=== PATIENT | female | born 1950 | race American Indian/Alaskan Native ===

== ENCOUNTER 2019-09-20 16:57 | Emergency (ER) | payer MEDICARE ==
[2019-09-20 17:44] LABS: Basophils % (Auto) 0.9 % (0.0-1.8); Eosinophils % (Auto) 0.5 % (0.0-4.3); Hematocrit 39.8 % (30.3-42.9); Hemoglobin 13.6 gm/dl (10.1-14.3); Lymphocytes # (Auto) 1.5 K/mm3 (1.2-5.4); Lymphocytes % (Auto) 33.9 % (13.4-35.0); Mean Corpuscular HGB Conc 34 % (30-34); Mean Corpuscular Volume 92 fl (79-97); Monocytes # (Auto) 0.4 K/mm3 (0.0-0.8); Platelet Count 219 K/mm3 (140-440); Red Blood Count 4.32 M/mm3 (3.65-5.03); Red Cell Distribution Width 14.1 % (13.2-15.2)
[2019-09-20 17:55] LABS: BUN/Creatinine Ratio 27; Blood Urea Nitrogen 19 mg/dL (7-17); Calcium 9.2 mg/dL (8.4-10.2); Hemolysis Index 7
[2019-09-20 17:58] LABS: Bacteria,Urine 1+ /HPF (Negative); Mucus,Urine FEW /HPF
[2019-09-20 17:59] LABS: Bilirubin,Urine NEG (Negative); Blood,Urine MOD (Negative); Color,Urine Yellow (Yellow); Protein,Urine <15 mg/dL mg/dL (Negative)
[2019-09-20 18:04] LABS: Amphetamine Screen,Urine PRESUMPTIVE NEGATIVE; Benzodiazepines Screen,Urine PRESUMPTIVE NEGATIVE; Cannabinoid Screen,Urine PRESUMPTIVE NEGATIVE; Cocaine Screen,Urine PRESUMPTIVE NEGATIVE; Methadone Screen,Urine PRESUMPTIVE NEGATIVE; Opiate Screen,Urine PRESUMPTIVE NEGATIVE
[2019-09-20] MEDS ORDERED: NITROFURANTOIN MONOHYD/M-CRYST 100 MG CAP PO ONE (18:42)
--- NOTE | 2019-09-20 18:59 | Emergency Department Report ---
HPI <YARITZA ROWLEY - Last Filed: 09/21/19 09:13> - HPI HPI: 69-year-old female presents to the emergency department via EMS for what appears to be a mental health evaluation. The patient has a past medical history of Alzheimer's dementia, schizophrenia and hypertension. The patient says that she was told to come in by her daughter but is unable to explain as to why she was sent in. Patient is oriented to person and place but not time. When answering most questions the patient goes on some type of tangential thoughts and does not end up answering the question. I spoke to the patient's daughter, Marisol Cifuentes, who says that the patient has been having some hallucinations or delusions and has been acting in a manner that is dangerous for both the patient herself and her grandchildren. The daughter just gave a few days ago. She says that the patient has been picking up the 4-day-old child and trying to "hand it over to people who are not there." The patient also has been going down and blocking the door and sometimes leaving it open when there are other young children in the house. It does not sound like the patient is compliant with her medications, Aricept, amlodipine and Seroquel. <JEVON PERSAUD S - Last Filed: 09/27/19 07:54> - General Chief Complaint: Medical Clearance Time Seen by Provider: 09/20/19 18:02 ED Past Medical Hx <YARITZA ROWLEY - Last Filed: 09/21/19 09:13> - Past Medical History Previous Medical History?: Yes Hx Hypertension: Yes Hx Psychiatric Treatment: Yes (schizo) Additional medical history: Alzheimers - Social History Smoking Status: Never Smoker Substance Use Type: None <JEVON PERSAUD S - Last Filed: 09/27/19 07:54> - Medications Home Medications: Home Medications Medication Instructions Recorded Confirmed Last Taken Type Amlodipine Besylate [Norvasc] 10 mg PO QDAY 09/20/19 09/21/19 Unknown History Donepezil [Aricept] 5 mg PO QPM 09/20/19 09/21/19 Unknown History Mirtazapine [Remeron 15mg TAB] 15 mg PO QHS 09/20/19 09/21/19 Unknown History Nitrofurantoin [place]/M-Cryst 100 mg PO Q12HR #13 capsule 09/21/19 09/21/19 Unknown Rx [Macrobid CAP] QUEtiapine [SEROquel] 25 mg PO QDAY #30 tablet 09/26/19 Unknown Rx Quetiapine Fumarate [SEROquel] 75 mg PO QHS #60 09/26/19 Unknown Rx ED Review of Systems ROS: Stated complaint: BEHAVIOR DISORDER Other details as noted in HPI <YARITZA ROWLEY - Last Filed: 09/21/19 09:13> ROS: Stated complaint: BEHAVIOR DISORDER Other details as noted in HPI Comment: All other systems reviewed and negative Constitutional: denies: chills, fever Eyes: denies: eye pain, vision change ENT: denies: ear pain, throat pain Respiratory: denies: cough, shortness of breath Cardiovascular: denies: chest pain, palpitations Gastrointestinal: denies: abdominal pain, vomiting Neurological: denies: headache, weakness Psychiatric: other (patient denies hallucinations but daughter says she is experiencing them). denies: homicidal thoughts, suicidal thoughts <JEVON PERSAUD Maegan - Last Filed: 09/27/19 07:54> Physical Exam - Physical Exam Vital Signs: Vital Signs 09/20/19 09/20/19 09/21/19 17:33 20:48 02:54 Temperature 98.1 F 98.0 F 98.2 F Pulse Rate 71 65 65 Respiratory 16 18 18 Rate Blood Pressure 106/67 130/56 132/55 [Left] O2 Sat by Pulse 100 100 98 Oximetry 09/21/19 09:00 Temperature 98.4 F Pulse Rate 87 Respiratory 18 Rate Blood Pressure 104/68 [Left] O2 Sat by Pulse 99 Oximetry <YARITZA ROWLEY - Last Filed: 09/21/19 09:13> - Physical Exam Vital Signs: Vital Signs 09/20/19 17:33 Temperature 98.1 F Pulse Rate 71 Respiratory 16 Rate Blood Pressure 106/67 [Left] O2 Sat by Pulse 100 Oximetry Physical Exam: GENERAL: The patient is well-developed well-nourished. HENT: Normocephalic. Atraumatic. Patient has moist mucous membranes. EYES: Extraocular motions are intact. NECK: Supple. Trachea is midline. CHEST/LUNGS: Clear to auscultation. There is no respiratory distress noted. HEART/CARDIOVASCULAR: Regular. There is no tachycardia. There is no murmur. ABDOMEN: Abdomen is soft, nontender. Patient has normal bowel sounds. There is no abdominal distention. SKIN: Skin is warm and dry. NEURO: The patient is awake, cooperative but confused. Oriented to person and place but not time. The patient has no focal neurologic deficits. Normal speech. MUSCULOSKELETAL: There is no tenderness or deformity. There is no limitation range of motion. There is no evidence of acute injury. PSYCH: Patient has some tangential rambling thoughts <JEVON PERSAUD S - Last Filed: 09/27/19 07:54> ED Course Vital Signs 09/20/19 09/20/19 09/21/19 17:33 20:48 02:54 Temperature 98.1 F 98.0 F 98.2 F Pulse Rate 71 65 65 Respiratory 16 18 18 Rate Blood Pressure 106/67 130/56 132/55 [Left] O2 Sat by Pulse 100 100 98 Oximetry 09/21/19 09:00 Temperature 98.4 F Pulse Rate 87 Respiratory 18 Rate Blood Pressure 104/68 [Left] O2 Sat by Pulse 99 Oximetry - Reevaluation(s) Reevaluation #1: 09/21/19 09:13 Patient in no acute distress. Eating food. Accepted by the psychiatry team. <YARITZA ROWLEY - Last Filed: 09/21/19 09:13> Vital Signs 09/20/19 17:33 Temperature 98.1 F Pulse Rate 71 Respiratory 16 Rate Blood Pressure 106/67 [Left] O2 Sat by Pulse 100 Oximetry <JEVON PERSAUD S - Last Filed: 09/27/19 07:54> ED Medical Decision Making - Lab Data Result diagrams: 09/20/19 17:30 09/20/19 17:30 Vital Signs 09/20/19 09/20/19 09/21/19 17:33 20:48 02:54 Temperature 98.1 F 98.0 F 98.2 F Pulse Rate 71 65 65 Respiratory 16 18 18 Rate Blood Pressure 106/67 130/56 132/55 [Left] O2 Sat by Pulse 100 100 98 Oximetry 09/21/19 09:00 Temperature 98.4 F Pulse Rate 87 Respiratory 18 Rate Blood Pressure 104/68 [Left] O2 Sat by Pulse 99 Oximetry Lab Results 09/20/19 09/20/19 09/20/19 Range/Units 17:30 17:30 17:30 WBC (4.5-11.0) K/mm3 RBC (3.65-5.03) M/mm3 Hgb (10.1-14.3) gm/dl Hct (30.3-42.9) % MCV (79-97) fl MCH (28-32) pg MCHC (30-34) % RDW (13.2-15.2) % Plt Count (140-440) K/mm3 Lymph % (Auto) (13.4-35.0) % [place] % (Auto) (0.0-7.3) % Eos % (Auto) (0.0-4.3) % Baso % (Auto) (0.0-1.8) % Lymph # (1.2-5.4) K/mm3 [place] # (0.0-0.8) K/mm3 Eos # (0.0-0.4) K/mm3 Baso # (0.0-0.1) K/mm3 Seg Neutrophils % (40.0-70.0) % Seg Neutrophils # (1.8-7.7) K/mm3 Sodium 142 (137-145) mmol/L Potassium 3.6 (3.6-5.0) mmol/L Chloride 105.9 (98-107) mmol/L Carbon Dioxide 26 (22-30) mmol/L Anion Gap 14 mmol/L BUN 19 H (7-17) mg/dL Creatinine 0.7 (0.7-1.2) mg/dL Estimated GFR > 60 ml/min BUN/Creatinine Ratio 27 % Glucose 144 H (65-100) mg/dL Calcium 9.2 (8.4-10.2) mg/dL Urine Color (Yellow) Urine Turbidity (Clear) Urine pH (5.0-7.0) Ur Specific [place] (1.003-1.030) Urine Protein (Negative) mg/dL Urine Glucose (UA) (Negative) mg/dL Urine Ketones (Negative) mg/dL Urine Blood (Negative) Urine Nitrite (Negative) Ur Reducing Substances Urine Bilirubin (Negative) Urine Ictotest Urine Urobilinogen (<2.0) mg/dL Ur Leukocyte Esterase (Negative) Urine WBC (Auto) (0.0-6.0) /HPF Urine RBC (Auto) (0.0-6.0) /HPF U Epithel Cells (Auto) (0-13.0) /HPF Urine Bacteria (Auto) (Negative) /HPF Urine Mucus /HPF Salicylates < 0.3 L (2.8-20.0) mg/dL Urine Opiates Screen Urine Methadone Screen Acetaminophen < 5.0 L (10.0-30.0) ug/mL Ur Barbiturates Screen Ur Phencyclidine Scrn Ur Amphetamines Screen U Benzodiazepines Scrn Urine Cocaine Screen U Marijuana (THC) Screen Drugs of Abuse Note Plasma/Serum Alcohol (0-0.07) % 09/20/19 09/20/19 09/20/19 Range/Units 17:30 17:30 Unknown WBC 4.4 L (4.5-11.0) K/mm3 RBC 4.32 (3.65-5.03) M/mm3 Hgb 13.6 (10.1-14.3) gm/dl Hct 39.8 (30.3-42.9) % MCV 92 (79-97) fl MCH 31 (28-32) pg MCHC 34 (30-34) % RDW 14.1 (13.2-15.2) % Plt Count 219 (140-440) K/mm3 Lymph % (Auto) 33.9 (13.4-35.0) % [place] % (Auto) 8.0 H (0.0-7.3) % Eos % (Auto) 0.5 (0.0-4.3) % Baso % (Auto) 0.9 (0.0-1.8) % Lymph # 1.5 (1.2-5.4) K/mm3 [place] # 0.4 (0.0-0.8) K/mm3 Eos # 0.0 (0.0-0.4) K/mm3 Baso # 0.0 (0.0-0.1) K/mm3 Seg Neutrophils % 56.7 (40.0-70.0) % Seg Neutrophils # 2.5 (1.8-7.7) K/mm3 Sodium (137-145) mmol/L Potassium (3.6-5.0) mmol/L Chloride (98-107) mmol/L Carbon Dioxide (22-30) mmol/L Anion Gap mmol/L BUN (7-17) mg/dL Creatinine (0.7-1.2) mg/dL Estimated GFR ml/min BUN/Creatinine Ratio % Glucose (65-100) mg/dL Calcium (8.4-10.2) mg/dL Urine Color Yellow (Yellow) Urine Turbidity Slightly-cloudy (Clear) Urine pH 5.0 (5.0-7.0) Ur Specific [place] 1.025 (1.003-1.030) Urine Protein <15 mg/dl (Negative) mg/dL Urine Glucose (UA) Neg (Negative) mg/dL Urine Ketones Neg (Negative) mg/dL Urine Blood Mod (Negative) Urine Nitrite Neg (Negative) Ur Reducing Substances Not Reportable Urine Bilirubin Neg (Negative) Urine Ictotest Not Reportable Urine Urobilinogen 2.0 (<2.0) mg/dL Ur Leukocyte Esterase Lg (Negative) Urine WBC (Auto) 37.0 H (0.0-6.0) /HPF Urine RBC (Auto) 4.0 (0.0-6.0) /HPF U Epithel Cells (Auto) 2.0 (0-13.0) /HPF Urine Bacteria (Auto) 1+ (Negative) /HPF Urine Mucus Few /HPF Salicylates (2.8-20.0) mg/dL Urine Opiates Screen Urine Methadone Screen Acetaminophen (10.0-30.0) ug/mL Ur Barbiturates Screen Ur Phencyclidine Scrn Ur Amphetamines Screen U Benzodiazepines Scrn Urine Cocaine Screen U Marijuana (THC) Screen Drugs of Abuse Note Plasma/Serum Alcohol < 0.01 (0-0.07) % 09/20/19 Range/Units Unknown WBC (4.5-11.0) K/mm3 RBC (3.65-5.03) M/mm3 Hgb (10.1-14.3) gm/dl Hct (30.3-42.9) % MCV (79-97) fl MCH (28-32) pg MCHC (30-34) % RDW (13.2-15.2) % Plt Count (140-440) K/mm3 Lymph % (Auto) (13.4-35.0) % [place] % (Auto) (0.0-7.3) % Eos % (Auto) (0.0-4.3) % Baso % (Auto) (0.0-1.8) % Lymph # (1.2-5.4) K/mm3 [place] # (0.0-0.8) K/mm3 Eos # (0.0-0.4) K/mm3 Baso # (0.0-0.1) K/mm3 Seg Neutrophils % (40.0-70.0) % Seg Neutrophils # (1.8-7.7) K/mm3 Sodium (137-145) mmol/L Potassium (3.6-5.0) mmol/L Chloride (98-107) mmol/L Carbon Dioxide (22-30) mmol/L Anion Gap mmol/L BUN (7-17) mg/dL Creatinine (0.7-1.2) mg/dL Estimated GFR ml/min BUN/Creatinine Ratio % Glucose (65-100) mg/dL Calcium (8.4-10.2) mg/dL Urine Color (Yellow) Urine Turbidity (Clear) Urine pH (5.0-7.0) Ur Specific [place] (1.003-1.030) Urine Protein (Negative) mg/dL Urine Glucose (UA) (Negative) mg/dL Urine Ketones (Negative) mg/dL Urine Blood (Negative) Urine Nitrite (Negative) Ur Reducing Substances Urine Bilirubin (Negative) Urine Ictotest Urine Urobilinogen (<2.0) mg/dL Ur Leukocyte Esterase (Negative) Urine WBC (Auto) (0.0-6.0) /HPF Urine RBC (Auto) (0.0-6.0) /HPF U Epithel Cells (Auto) (0-13.0) /HPF Urine Bacteria (Auto) (Negative) /HPF Urine Mucus /HPF Salicylates (2.8-20.0) mg/dL Urine Opiates Screen Presumptive negative Urine Methadone Screen Presumptive negative Acetaminophen (10.0-30.0) ug/mL Ur Barbiturates Screen Presumptive negative Ur Phencyclidine Scrn Presumptive negative Ur Amphetamines Screen Presumptive negative U Benzodiazepines Scrn Presumptive negative Urine Cocaine Screen Presumptive negative U Marijuana (THC) Screen Presumptive negative Drugs of Abuse Note Disclamer Plasma/Serum Alcohol (0-0.07) % <YARITZA ROWLEY - Last Filed: 09/21/19 09:13> - Lab Data Result diagrams: 09/20/19 17:30 09/20/19 17:30 - Medical Decision Making This patient presents for a mental health evaluation. She has both a history of Alzheimer's dementia and schizophrenia. The patient does not provide much information as to why she was brought into the emergency department. However I spoke to the patient's daughter who says that the patient has been having some b ehavioral disturbances that appeared to be a danger to both the patient and her family. This includes picking up her 4-day-old grandchild and allegedly trying to handoff to "people who were not there", unlocking and opening the front door and leaving it open where the children can run out or people could easily enter their home. The patient also apparently has been turning on the stove oven with out cooking any food and leaving it on. Patient denies any suicidal or homicidal ideations. She denies that any of this is happening. Her labs have been mostly unremarkable. She will be evaluated by the mental health team in the morning. <JEVON PERSAUD S - Last Filed: 09/27/19 07:54> Critical care attestation.: If time is entered above; I have spent that time in minutes in the direct care of this critically ill patient, excluding procedure time. <YARITZA ROWLEY - Last Filed: 09/21/19 09:13> Critical care attestation.: If time is entered above; I have spent that time in minutes in the direct care of this critically ill patient, excluding procedure time. <JEVON PERSAUD S - Last Filed: 09/27/19 07:54> ED Disposition Is pt being admited?: No Does the pt Need Aspirin: No <YARITZA ROWLEY - Last Filed: 09/21/19 09:13> Is pt being admited?: No Time of Disposition: 04:00 <JEVON PERSAUD S - Last Filed: 09/27/19 07:54> Clinical Impression: UTI (urinary tract infection), Schizophrenia, Dementia Disposition: [id number] PSY HOSP/PSY UNIT Condition: Stable Prescriptions: Nitrofurantoin [place]/M-Cryst [Macrobid CAP] 100 mg PO Q12HR #13 capsule Referrals: PRIMARY CARE, [Primary Care Provider] - 3-5 Days
[2019-09-21 09:01] VITALS: BP 104/68
== END 2019-09-21 10:00 ==
LOC: ED 16:57 → EEVIPCON 16:57 → ED 09-21 10:00
DX: N39.0 Urinary tract infection, site not specified (principal); F20.9 Schizophrenia, unspecified; G30.9 Alzheimer's disease, unspecified; F02.80 Dementia in other diseases classified elsewhere, unspecified severity, without behavioral disturbance, psychotic disturbance, mood disturbance, and anxiety
CPT/HCPCS: 36415; 80048; 80307; 80320; 81001; 85025; 87086; G0480

== ENCOUNTER 2019-09-21 08:27 | Inpatient (IN) | payer MEDICARE ==
[2019-09-21 14:43] LABS: Basophils % (Auto) 0.9 % (0.0-1.8); Eosinophils % (Auto) 0.9 % (0.0-4.3); Hematocrit 43.7 % (30.3-42.9); Hemoglobin 14.8 gm/dl (10.1-14.3); Lymphocytes # (Auto) 1.7 K/mm3 (1.2-5.4); Lymphocytes % (Auto) 38.7 % (13.4-35.0); Mean Corpuscular HGB Conc 34 % (30-34); Mean Corpuscular Volume 93 fl (79-97); Monocytes # (Auto) 0.4 K/mm3 (0.0-0.8); Monocytes % (Auto) 9.9 % (0.0-7.3); Platelet Count 245 K/mm3 (140-440); Red Cell Distribution Width 14.3 % (13.2-15.2)
[2019-09-21 15:02] LABS: Alanine Aminotransferase 11 units/L (7-56); Albumin 4.4 g/dL (3.9-5); BUN/Creatinine Ratio 24; Blood Urea Nitrogen 17 mg/dL (7-17); Calcium 9.6 mg/dL (8.4-10.2); Chol/HDL Ratio 4.15 %; HDL Cholesterol 59 mg/dL (40-59); Hemolysis Index 8; LDL Cholesterol,Direct 183 mg/dL (50-130)
[2019-09-21] MEDS: NITROFURANTOIN MONOHYD/M-CRYST 100 MG CAP PO SCH ×2 (15:04→21:57)
[2019-09-21] MEDS: amLODIPine 5 MG TAB PO SCH (15:05)
[2019-09-21] MEDS: DONEPEZIL 5 MG TAB PO SCH (17:34)
[2019-09-21] MEDS: MIRTAZAPINE 15 MG TAB PO SCH (21:55)
[2019-09-21] MEDS: QUEtiapine 25 MG TAB PO SCH (21:56)
[2019-09-21] MEDS ORDERED: QUETIAPINE FUMARATE 75 MG PO SCH (22:00)
[2019-09-22] MEDS: amLODIPine 5 MG TAB PO SCH (09:12)
[2019-09-22] MEDS: NITROFURANTOIN MONOHYD/M-CRYST 100 MG CAP PO SCH ×2 (09:12→21:36)
--- NOTE | 2019-09-22 09:15 | History and Physical Report ---
<NICCI SEPULVEDA - Last Filed: 09/22/19 09:44> GP History & Physical - History of Present Illness Date of admission: 09/21/19 Date of Examination: 09/22/19 Reason for Admission: Danger to self Chief Complaint: Hallucinations and Delusions History of Present Illness: NURSE NOTE: 1228 A 64years old black female admitted to [facility], a/o 3 , admitted for visual hallucination, seeing imaginary people and leaving the doors to their home wide open and her daughter is concern because she has little children living in the house. Pt. has hx of Alzhimers dx, closed head injury and HTN. Skin intact, some discoloration on her neck. Pt. ambulatory but came with a walker. 0334 Received a&ox1 to 2. Ambulatory. Pt is hyperverbal, talkative, poor historian, speech incongruent and nonsensical upon assessment. Denies pain. Denies SI & HI. She is medication compliant. In my interview with the patient this morning, the patient is sitting on side of bed. Well groomed. Good hygiene. She is smiling and pleasant. Mrs. Stallings states she is here because her daughter insisted that she leave. She says she doesn't know why her daughter did not want her there anymore. Mrs Stallings is quite delusional, stating she helps the police solve crimes. She denies SI/HI at this time or ever, stating she is a "spiritual saint." She says she "slept pretty good" but says she is still tired. She denies any psychiatric history. She also denies hallucinations of any kind. PAST PSYCHIATRIC HISTORY: Diagnoses: Paranoid Schizophrenia Suicide attempts or Self-harm behavior: NONE Prior psychiatric hospitalizations: The patient denies any psychiatric admits or psychiatric history Substance Abuse history: Denies Previous psychiatric medications tried: Denies Outpatient treatment: Allergies: NKDA Family Psychiatric History None reported or documented SOCIAL HISTORY Marital Status: States Living Arrangements: Daughter Employment Status: Retired Access to guns/weapons: NONE Education: States "a couple of classes toward Grad school" Tobacco: NONE Alcohol: Denies History of Abuse: Denies Legal History: Denies REVIEW OF SYSTEMS Constitutional: Negative for weight loss ENT: Negative for stridor Respiratory: Negative for cough or hemoptysis All other systems reviewed and are negative Legal Status: Voluntary REVIEW OF SYSTEMS Constitutional: Negative for weight loss ENT: Negative for stridor Respiratory: Negative for cough or hemoptysis All other systems reviewed and are negative MSE Orientation: person Affect: Euphoric Mood: congruent with affect Thought content: Patient denies SI/HI, delusions Thought Process: Circumstantial Perceptions: none Speech: normal rate and pattern Concentration: Inability to focus on one thought at a time Motor activity: calm Level of consciousness: alert Memory: Intact Sleep Symptoms: Denies difficulty falling asleep Interaction: cooperative, pleasant Diagnoses: Paranoid Schizophrenia Treatment Plan Patient will be admitted for inpatient psychiatric evaluation, medication adjustment and close monitoring The patient's behavior, mood, sleep and appetite will be closely monitored. Patient will be enrolled in individual and group therapeutic sessions and encouraged to attend. Patient will be provided with a safe and structured environment. Patient's physical health needs will be addressed by the Hospitalist. Hospitalist Consulted Labs including CBC, CMP, Lipid profile and Hemoglobin A1C ordered Social Assessment will be completed and the Sql Database Programmer will work with patient and family to ensure a suitable and safe disposition Medication adjustment will be made as clinically indicated The patient agreed on the treatment plan, understood the risk, benefit, alternative treatment, potential consequence of no treatment, and gave informed consent. Legal Status: Voluntary Reaction to Hospitalization: Denial (Patient states she doesn't understand why her daughter didn't want her there or why she's admitted) Medications and Allergies Allergies Allergy/AdvReac Type Severity Reaction Status Date / Time No Known Allergies Allergy Verified 08/26/18 15:57 Home Medications Medication Instructions Recorded Confirmed Last Taken Type Amlodipine Besylate [Norvasc] 10 mg PO QDAY 09/20/19 09/21/19 Unknown History Donepezil [Aricept] 5 mg PO QPM 09/20/19 09/21/19 Unknown History Mirtazapine [Remeron 15mg TAB] 15 mg PO QHS 09/20/19 09/21/19 Unknown History Quetiapine Fumarate [SEROquel] 75 mg PO QHS 09/20/19 09/21/19 Unknown History Nitrofurantoin [place]/M-Cryst 100 mg PO Q12HR #13 capsule 09/21/19 09/21/19 Unknown Rx [Macrobid CAP] Active Meds: Active Medications Amlodipine Besylate (Amlodipine) 10 mg PO QDAY [facility] Last Admin: 09/22/19 09:12 Dose: 10 mg Documented by: Donepezil HCl (Aricept) 5 mg PO QPM [facility] Last Admin: 09/21/19 17:34 Dose: 5 mg Documented by: Mirtazapine (Remeron) 15 mg PO QHS [facility] Last Admin: 09/21/19 21:55 Dose: 15 mg Documented by: Nitrofurantoin Macrocrystals (Macrobid) 100 mg PO Q12HR [facility] Last Admin: 09/22/19 09:12 Dose: 100 mg Documented by: Quetiapine Fumarate (Seroquel) 75 mg PO QHS [facility] Last Admin: 09/21/19 21:56 Dose: 75 mg Documented by: Results - Results Labs/Vitals: Laboratory Last Values WBC 4.3 K/mm3 (4.5-11.0) L 09/21/19 14:16 RBC 4.70 M/mm3 (3.65-5.03) 09/21/19 14:16 Hgb 14.8 gm/dl (10.1-14.3) H 09/21/19 14:16 Hct 43.7 % (30.3-42.9) H 09/21/19 14:16 MCV 93 fl (79-97) 09/21/19 14:16 MCH 32 pg (28-32) 09/21/19 14:16 MCHC 34 % (30-34) 09/21/19 14:16 RDW 14.3 % (13.2-15.2) 09/21/19 14:16 Plt Count 245 K/mm3 (140-440) 09/21/19 14:16 Lymph % (Auto) 38.7 % (13.4-35.0) H 09/21/19 14:16 [place] % (Auto) 9.9 % (0.0-7.3) H 09/21/19 14:16 Eos % (Auto) 0.9 % (0.0-4.3) 09/21/19 14:16 Baso % (Auto) 0.9 % (0.0-1.8) 09/21/19 14:16 Lymph # 1.7 K/mm3 (1.2-5.4) 09/21/19 14:16 [place] # 0.4 K/mm3 (0.0-0.8) 09/21/19 14:16 Eos # 0.0 K/mm3 (0.0-0.4) 09/21/19 14:16 Baso # 0.0 K/mm3 (0.0-0.1) 09/21/19 14:16 Seg Neutrophils % 49.6 % (40.0-70.0) 09/21/19 14:16 Seg Neutrophils # 2.1 K/mm3 (1.8-7.7) 09/21/19 14:16 Sodium 141 mmol/L (137-145) 09/21/19 14:16 Potassium 4.1 mmol/L (3.6-5.0) 09/21/19 14:16 Chloride 100.6 mmol/L (98-107) 09/21/19 14:16 Carbon Dioxide 26 mmol/L (22-30) 09/21/19 14:16 Anion Gap 19 mmol/L 09/21/19 14:16 BUN 17 mg/dL (7-17) 09/21/19 14:16 Creatinine 0.7 mg/dL (0.7-1.2) 09/21/19 14:16 Estimated GFR > 60 ml/min 09/21/19 14:16 BUN/Creatinine Ratio 24 % 09/21/19 14:16 Glucose 121 mg/dL (65-100) H 09/21/19 14:16 POC Glucose 116 (70-105) H 09/22/19 07:44 Hemoglobin A1c 5.7 % (4-6) 09/21/19 14:16 Calcium 9.6 mg/dL (8.4-10.2) 09/21/19 14:16 Total Bilirubin 0.40 mg/dL (0.1-1.2) 09/21/19 14:16 AST 18 units/L (5-40) 09/21/19 14:16 ALT 11 units/L (7-56) 09/21/19 14:16 Alkaline Phosphatase 80 units/L (35-129) 09/21/19 14:16 Total Protein 7.9 g/dL (6.3-8.2) 09/21/19 14:16 Albumin 4.4 g/dL (3.9-5) 09/21/19 14:16 Albumin/Globulin Ratio 1.3 % 09/21/19 14:16 Triglycerides 103 mg/dL (2-149) 09/21/19 14:16 Cholesterol 245 mg/dL (50-199) H 09/21/19 14:16 LDL Cholesterol Direct 183 mg/dL (50-130) H 09/21/19 14:16 HDL Cholesterol 59 mg/dL (40-59) 09/21/19 14:16 Cholesterol/HDL Ratio 4.15 % 09/21/19 14:16 Last Vital Signs Temp 98.4 F 09/22/19 08:33 Pulse 88 09/22/19 08:33 Resp 18 09/22/19 08:33 BP 127/59 09/22/19 08:33 Pulse Ox 96 09/22/19 08:33 Physical Examination - Constitutional Vitals: Vital Signs Temp Pulse Resp BP Pulse Ox 98.4 F 88 18 127/59 96 09/22/19 08:33 09/22/19 08:33 09/22/19 08:33 09/22/19 08:33 09/22/19 08:33 Temperature -Last 24 Hours Temperature 98.4 F Temperature 98.6 F Temperature 98.6 F Temperature 98.2 F Temperature 98.1 F Mental Status Exam - Vital signs Last Vital Signs Temp 98.4 F 09/22/19 08:33 Pulse 88 09/22/19 08:33 Resp 18 09/22/19 08:33 BP 127/59 09/22/19 08:33 Pulse Ox 96 09/22/19 08:33 Physician Certification - Certification Statement Physician Certification Statement: This is an acknowledgement statement that NASRA STALLINGS is a 69 year old F who requires inpatient psychiatric admission for treatment which could reasonably be expected to improve the patient's condition for Estimated period of time patient will need to remain in the hospital: [ ] Plan for post-hospital care: [ ] <KELLEE PEREZ - Last Filed: 09/23/19 05:29> GP History & Physical - History of Present Illness Reason for Admission: Psychopathology interference, Unable to care for self Medications and Allergies Active Meds: Active Medications Amlodipine Besylate (Amlodipine) 10 mg PO QDAY [facility] Last Admin: 09/22/19 09:12 Dose: 10 mg Documented by: Donepezil HCl (Aricept) 5 mg PO QPM [facility] Last Admin: 09/22/19 17:53 Dose: 5 mg Documented by: Mirtazapine (Remeron) 15 mg PO QHS [facility] Last Admin: 09/22/19 21:36 Dose: 15 mg Documented by: Nitrofurantoin Macrocrystals (Macrobid) 100 mg PO Q12HR [facility] Last Admin: 09/22/19 21:36 Dose: 100 mg Documented by: Quetiapine Fumarate (Seroquel) 75 mg PO QHS [facility] Last Admin: 09/22/19 21:36 Dose: 75 mg Documented by: Results - Results Labs/Vitals: Laboratory Last Values WBC 4.3 K/mm3 (4.5-11.0) L 09/21/19 14:16 RBC 4.70 M/mm3 (3.65-5.03) 09/21/19 14:16 Hgb 14.8 gm/dl (10.1-14.3) H 09/21/19 14:16 Hct 43.7 % (30.3-42.9) H 09/21/19 14:16 MCV 93 fl (79-97) 09/21/19 14:16 MCH 32 pg (28-32) 09/21/19 14:16 MCHC 34 % (30-34) 09/21/19 14:16 RDW 14.3 % (13.2-15.2) 09/21/19 14:16 Plt Count 245 K/mm3 (140-440) 09/21/19 14:16 Lymph % (Auto) 38.7 % (13.4-35.0) H 09/21/19 14:16 Rooks % (Auto) 9.9 % (0.0-7.3) H 09/21/19 14:16 Eos % (Auto) 0.9 % (0.0-4.3) 09/21/19 14:16 Baso % (Auto) 0.9 % (0.0-1.8) 09/21/19 14:16 Lymph # 1.7 K/mm3 (1.2-5.4) 09/21/19 14:16 [place]ooks # 0.4 K/mm3 (0.0-0.8) 09/21/19 14:16 Eos # 0.0 K/mm3 (0.0-0.4) 09/21/19 14:16 Baso # 0.0 K/mm3 (0.0-0.1) 09/21/19 14:16 Seg Neutrophils % 49.6 % (40.0-70.0) 09/21/19 14:16 Seg Neutrophils # 2.1 K/mm3 (1.8-7.7) 09/21/19 14:16 Sodium 141 mmol/L (137-145) 09/21/19 14:16 Potassium 4.1 mmol/L (3.6-5.0) 09/21/19 14:16 Chloride 100.6 mmol/L (98-107) 09/21/19 14:16 Carbon Dioxide 26 mmol/L (22-30) 09/21/19 14:16 Anion Gap 19 mmol/L 09/21/19 14:16 BUN 17 mg/dL (7-17) 09/21/19 14:16 Creatinine 0.7 mg/dL (0.7-1.2) 09/21/19 14:16 Estimated GFR > 60 ml/min 09/21/19 14:16 BUN/Creatinine Ratio 24 % 09/21/19 14:16 Glucose 121 mg/dL (65-100) H 09/21/19 14:16 POC Glucose 116 (70-105) H 09/22/19 07:44 Hemoglobin A1c 5.7 % (4-6) 09/21/19 14:16 Calcium 9.6 mg/dL (8.4-10.2) 09/21/19 14:16 Total Bilirubin 0.40 mg/dL (0.1-1.2) 09/21/19 14:16 AST 18 units/L (5-40) 09/21/19 14:16 ALT 11 units/L (7-56) 09/21/19 14:16 Alkaline Phosphatase 80 units/L (35-129) 09/21/19 14:16 Total Protein 7.9 g/dL (6.3-8.2) 09/21/19 14:16 Albumin 4.4 g/dL (3.9-5) 09/21/19 14:16 Albumin/Globulin Ratio 1.3 % 09/21/19 14:16 Triglycerides 103 mg/dL (2-149) 09/21/19 14:16 Cholesterol 245 mg/dL (50-199) H 09/21/19 14:16 LDL Cholesterol Direct 183 mg/dL (50-130) H 09/21/19 14:16 HDL Cholesterol 59 mg/dL (40-59) 09/21/19 14:16 Cholesterol/HDL Ratio 4.15 % 09/21/19 14:16 Last Vital Signs Temp 98.3 F 09/22/19 22:00 Pulse 73 09/22/19 22:00 Resp 18 09/22/19 22:00 BP 110/41 09/22/19 22:00 Pulse Ox 100 09/22/19 22:00 Physical Examination - Constitutional Vitals: Vital Signs Temp Pulse Resp BP Pulse Ox 98.3 F 73 18 110/41 100 09/22/19 22:00 09/22/19 22:00 09/22/19 22:00 09/22/19 22:00 09/22/19 22:00 Temperature -Last 24 Hours Temperature 98.3 F Temperature 98.4 F Mental Status Exam - Vital signs Last Vital Signs Temp 98.3 F 09/22/19 22:00 Pulse 73 09/22/19 22:00 Resp 18 09/22/19 22:00 BP 110/41 09/22/19 22:00 Pulse Ox 100 09/22/19 22:00 Physician Certification - Certification Statement Physician Certification Statement: This is an acknowledgement statement that NASRA STALLINGS is a 69 year old F who requires inpatient psychiatric admission for treatment which could reasonably be expected to improve the patient's condition for dementia and psychosis Estimated period of time patient will need to remain in the hospital: 7 days Plan for post-hospital care: out-patient care
--- NOTE | 2019-09-22 11:20 | Consultation ---
History of Present Illness - Reason for Consult Consult date: 09/22/19 - History of Present Illness A 64years old black female admitted to the [facility] psych unit for visual hallucination, seeing imaginary people and leaving the doors to their home wide open and her daughter is concerned because she has little children living in the house. Pt. has hx of Alzhimers dx, closed head injury and HTN. The patient was noted to be hyperverbal, talkative, poor historian, speech incongruent and nonsensical upon assessment. Patient was admitted with diagnosis of paranoid schizophrenia. Patient is unable to give any other past medical history other than hypertension. She denies any chest pain shortness of breath headache or visual disturbances. Past History Past Medical History: hypertension Past Surgical History: Other (unable to obtain due to mental status) Social history: other (unable to obtain due to mental status) Family history: other (unable to obtain due to mental status) Medications and Allergies Allergies Allergy/AdvReac Type Severity Reaction Status Date / Time No Known Allergies Allergy Verified 08/26/18 15:57 Home Medications Medication Instructions Recorded Confirmed Last Taken Type Amlodipine Besylate [Norvasc] 10 mg PO QDAY 09/20/19 09/21/19 Unknown History Donepezil [Aricept] 5 mg PO QPM 09/20/19 09/21/19 Unknown History Mirtazapine [Remeron 15mg TAB] 15 mg PO QHS 09/20/19 09/21/19 Unknown History Quetiapine Fumarate [SEROquel] 75 mg PO QHS 09/20/19 09/21/19 Unknown History Nitrofurantoin [place]/M-Cryst 100 mg PO Q12HR #13 capsule 09/21/19 09/21/19 Unkno wn Rx [Macrobid CAP] Active Meds: Active Medications Amlodipine Besylate (Amlodipine) 10 mg PO QDAY [facility] Last Admin: 09/22/19 09:12 Dose: 10 mg Documented by: Donepezil HCl (Aricept) 5 mg PO QPM [facility] Last Admin: 09/21/19 17:34 Dose: 5 mg Documented by: Mirtazapine (Remeron) 15 mg PO QHS [facility] Last Admin: 09/21/19 21:55 Dose: 15 mg Documented by: Nitrofurantoin Macrocrystals (Macrobid) 100 mg PO Q12HR [facility] Last Admin: 09/22/19 09:12 Dose: 100 mg Documented by: Quetiapine Fumarate (Seroquel) 75 mg PO QHS [facility] Last Admin: 09/21/19 21:56 Dose: 75 mg Documented by: Review of Systems All systems: negative Exam - Constitutional Vitals: Temp Pulse Resp BP Pulse Ox 98.4 F 88 18 127/59 96 09/22/19 08:33 09/22/19 08:33 09/22/19 08:33 09/22/19 08:33 09/22/19 08:33 General appearance: Present: no acute distress, well-nourished - EENT Eyes: Present: PERRL ENT: hearing intact, clear oral mucosa - Neck Neck: Present: supple, normal ROM - Respiratory Respiratory effort: normal Respiratory: bilateral: CTA - Cardiovascular Heart Sounds: Present: S1 & S2. Absent: rub, click - Extremities Extremities: pulses symmetrical, No edema Peripheral Pulses: within normal limits - Abdominal General gastrointestinal: Present: soft, non-tender, non-distended, normal bowel sounds Female genitourinary: Present: normal - Integumentary Integumentary: Present: clear, warm, dry - Musculoskeletal Musculoskeletal: gait normal, strength equal bilaterally - Psychiatric Psychiatric: appropriate mood/affect, intact judgment & insight - Neurologic Neurologic: CNII-XII intact, moves all extremities Results - Labs CBC & Chem 7: 09/21/19 14:16 09/21/19 14:16 Labs: Abnormal lab results 09/21/19 09/21/19 09/21/19 Range/Units 14:16 14:16 19:40 WBC 4.3 L (4.5-11.0) K/mm3 Hgb 14.8 H (10.1-14.3) gm/dl Hct 43.7 H (30.3-42.9) % Lymph % (Auto) 38.7 H (13.4-35.0) % [place] % (Auto) 9.9 H (0.0-7.3) % Glucose 121 H (65-100) mg/dL POC Glucose 191 H (70-105) Cholesterol 245 H (50-199) mg/dL LDL Cholesterol Direct 183 H (50-130) mg/dL 09/22/19 Range/Units 07:44 WBC (4.5-11.0) K/mm3 Hgb (10.1-14.3) gm/dl Hct (30.3-42.9) % Lymph % (Auto) (13.4-35.0) % [place] % (Auto) (0.0-7.3) % Glucose (65-100) mg/dL POC Glucose 116 H (70-105) Cholesterol (50-199) mg/dL LDL Cholesterol Direct (50-130) mg/dL Assessment and Plan Paranoid schizophrenia. Continue per psych team. Hypertension. Continue her home medication of Norvasc.
[2019-09-22] MEDS: DONEPEZIL 5 MG TAB PO SCH (17:53)
[2019-09-22] MEDS: MIRTAZAPINE 15 MG TAB PO SCH (21:36)
[2019-09-22] MEDS: QUEtiapine 25 MG TAB PO SCH (21:36)
--- NOTE | 2019-09-23 08:35 | Progress Note ---
Subjective Date of service: 09/23/19 Principal diagnosis: Paranoid Schizophrenia Subjective Comment: Medical records reviewed and patient's progress was discussed with unit staff. Nursing note states patient has presented as calm and pleasant this evening with mild paranoid behavior. In my interview with the patient this morning, the patient is lying in bed awake. Well groomed. She says she's been feeling sick. Mrs Ortega is talkative. She keeps talking about her whom she says works for [employer] and she has to help him because his eyes have gotten bad. Mrs. Ortega says she's "tired and home sick." She says her daughter needed a break and that's the only reason she's here. She says her appetite is good and she did sleep well despite feeling tired this morning. She says she thought her daughter was here and heard her voice this morning, but when she got up to go see she didn't see her daughter. She denies SI/HI and replies "I'm just getting a chance to live." The patient says her mood is good. Review of Symptoms: Constitutional: Negative for weight loss ENT: Negative for stridor Respiratory: Negative for cough or hemoptysis All other systems reviewed and are negative MSE Appearance: Well groomed Behavior: Pleasant, calm and cooperative Mood: "Good" Affect: Congruent with stated mood Thought Process: Circumstantial Speech: Normal rate. Thought Content Harmfulness Denies SI/HI Hallucinations: patient denies Delusions: none elicited Consciousness: alert Cognition/Memory: Inability to focus on one thought at a time Insight/Judgment: Limited. Treatment Plan Due to the psychiatric conditions and treatment listed in the Assessment and Plan - the patient requires continued hospitalization. Will continue inpatient treatment to allow for medication adjustment and monitoring. Will continue q15 min safety checks. Will encourage the use of environmental modifications and non-pharmacologic approaches for the management of behavioral and psychological symptoms. Medication adjustment made today: No changes made to medication regimen Will continue current psych medications Monitor for medication side effects. The patient will continue on medications for physical illnesses, and Hospitalist will closely monitor these Continue intensive physical and occupational therapies. Monitor patient's mood, sleep, appetite, and behavior closely. Encourage patient to participate in individual and group therapeutic sessions on the wilder. Will provide a safe and therapeutic environment for patient. Estimated length of stay 3 days Medications and Allergies Allergies Allergy/AdvReac Type Severity Reaction Status Date / Time No Known Allergies Allergy Verified 08/26/18 15:57 Home Medications Medication Instructions Recorded Confirmed Last Taken Type Amlodipine Besylate [Norvasc] 10 mg PO QDAY 09/20/19 09/21/19 Unknown History Donepezil [Aricept] 5 mg PO QPM 09/20/19 09/21/19 Unknown History Mirtazapine [Remeron 15mg TAB] 15 mg PO QHS 09/20/19 09/21/19 Unknown History Quetiapine Fumarate [SEROquel] 75 mg PO QHS 09/20/19 09/21/19 Unknown History Nitrofurantoin [place]/M-Cryst 100 mg PO Q12HR #13 capsule 09/21/19 09/21/19 Unknown Rx [Macrobid CAP] Active Meds: Active Medications Amlodipine Besylate (Amlodipine) 10 mg PO QDAY [facility] Last Admin: 09/22/19 09:12 Dose: 10 mg Documented by: Donepezil HCl (Aricept) 5 mg PO QPM [facility] Last Admin: 09/22/19 17:53 Dose: 5 mg Documented by: Mirtazapine (Remeron) 15 mg PO QHS [facility] Last Admin: 09/22/19 21:36 Dose: 15 mg Documented by: Nitrofurantoin Macrocrystals (Macrobid) 100 mg PO Q12HR [facility] Last Admin: 09/22/19 21:36 Dose: 100 mg Documented by: Quetiapine Fumarate (Seroquel) 75 mg PO QHS [facility] Last Admin: 09/22/19 21:36 Dose: 75 mg Documented by: Results - Results Labs/Vitals: Laboratory Last Values WBC 4.3 K/mm3 (4.5-11.0) L 09/21/19 14:16 RBC 4.70 M/mm3 (3.65-5.03) 09/21/19 14:16 Hgb 14.8 gm/dl (10.1-14.3) H 09/21/19 14:16 Hct 43.7 % (30.3-42.9) H 09/21/19 14:16 MCV 93 fl (79-97) 09/21/19 14:16 MCH 32 pg (28-32) 09/21/19 14:16 MCHC 34 % (30-34) 09/21/19 14:16 RDW 14.3 % (13.2-15.2) 09/21/19 14:16 Plt Count 245 K/mm3 (140-440) 09/21/19 14:16 Lymph % (Auto) 38.7 % (13.4-35.0) H 09/21/19 14:16 [place] % (Auto) 9.9 % (0.0-7.3) H 09/21/19 14:16 Eos % (Auto) 0.9 % (0.0-4.3) 09/21/19 14:16 Baso % (Auto) 0.9 % (0.0-1.8) 09/21/19 14:16 Lymph # 1.7 K/mm3 (1.2-5.4) 09/21/19 14:16 [place] # 0.4 K/mm3 (0.0-0.8) 09/21/19 14:16 Eos # 0.0 K/mm3 (0.0-0.4) 09/21/19 14:16 Baso # 0.0 K/mm3 (0.0-0.1) 09/21/19 14:16 Seg Neutrophils % 49.6 % (40.0-70.0) 09/21/19 14:16 Seg Neutrophils # 2.1 K/mm3 (1.8-7.7) 09/21/19 14:16 Sodium 141 mmol/L (137-145) 09/21/19 14:16 Potassium 4.1 mmol/L (3.6-5.0) 09/21/19 14:16 Chloride 100.6 mmol/L (98-107) 09/21/19 14:16 Carbon Dioxide 26 mmol/L (22-30) 09/21/19 14:16 Anion Gap 19 mmol/L 09/21/19 14:16 BUN 17 mg/dL (7-17) 09/21/19 14:16 Creatinine 0.7 mg/dL (0.7-1.2) 09/21/19 14:16 Estimated GFR > 60 ml/min 09/21/19 14:16 BUN/Creatinine Ratio 24 % 09/21/19 14:16 Glucose 121 mg/dL (65-100) H 09/21/19 14:16 POC Glucose 116 (70-105) H 09/22/19 07:44 Hemoglobin A1c 5.7 % (4-6) 09/21/19 14:16 Calcium 9.6 mg/dL (8.4-10.2) 09/21/19 14:16 Total Bilirubin 0.40 mg/dL (0.1-1.2) 09/21/19 14:16 AST 18 units/L (5-40) 09/21/19 14:16 ALT 11 units/L (7-56) 09/21/19 14:16 Alkaline Phosphatase 80 units/L (35-129) 09/21/19 14:16 Total Protein 7.9 g/dL (6.3-8.2) 09/21/19 14:16 Albumin 4.4 g/dL (3.9-5) 09/21/19 14:16 Albumin/Globulin Ratio 1.3 % 09/21/19 14:16 Triglycerides 103 mg/dL (2-149) 09/21/19 14:16 Cholesterol 245 mg/dL (50-199) H 09/21/19 14:16 LDL Cholesterol Direct 183 mg/dL (50-130) H 09/21/19 14:16 HDL Cholesterol 59 mg/dL (40-59) 09/21/19 14:16 Cholesterol/HDL Ratio 4.15 % 09/21/19 14:16 Last Vital Signs Temp 98.3 F 09/22/19 22:00 Pulse 73 09/22/19 22:00 Resp 18 09/22/19 22:00 BP 110/41 09/22/19 22:00 Pulse Ox 100 09/22/19 22:00
[2019-09-23] MEDS: amLODIPine 5 MG TAB PO SCH (09:59)
[2019-09-23] MEDS: NITROFURANTOIN MONOHYD/M-CRYST 100 MG CAP PO SCH ×2 (10:00→22:03)
[2019-09-23] MEDS: DONEPEZIL 5 MG TAB PO SCH (17:33)
[2019-09-23] MEDS: MIRTAZAPINE 15 MG TAB PO SCH (22:03)
[2019-09-23] MEDS: QUEtiapine 25 MG TAB PO SCH (22:03)
[2019-09-24] MEDS: amLODIPine 5 MG TAB PO SCH (09:24)
[2019-09-24] MEDS: NITROFURANTOIN MONOHYD/M-CRYST 100 MG CAP PO SCH ×2 (09:24→21:12)
--- NOTE | 2019-09-24 10:10 | Progress Note ---
Subjective Date of service: 09/24/19 Principal diagnosis: Paranoid Schizophrenia Subjective Comment: Medical records reviewed and patient's progress was discussed with unit staff. Nursing note states the patient had difficulty getting to sleep. Her behavior was paranoid and she presented as being afraid. In my interview with the patient this morning, the patient is sitting in day room off to herself. Well groomed. She is talkative and having flight of ideas. She says her brothers works in the area, and spoke about riding the bus to [place]. Mrs. Ortega is paranoid and thinks the staff is out to get her. She says "they were harsh." She also says she did not sleep well because she heard voices that sounded like her brothers. Mrs. Ortega denies SI/HI. She says her mood is "okay" and appetite is good. Review of Symptoms: Constitutional: Negative for weight loss ENT: Negative for stridor Respiratory: Negative for cough or hemoptysis All other systems reviewed and are negative MSE Appearance: Well groomed Behavior: Pleasant, and cooperative. Talkative Mood: "Okay" Affect: Congruent with stated mood Thought Process: Circumstantial, Flight of ideas Speech: Normal rate. Thought Content Harmfulness Denies SI/HI Hallucinations: Auditory Delusions: Yes Consciousness: alert Cognition/Memory: Inability to focus on one thought at a time Insight/Judgment: Limited. Treatment Plan Due to the psychiatric conditions and treatment listed in the Assessment and Plan - the patient requires continued hospitalization. Will continue inpatient treatment to allow for medication adjustment and monitoring. Will continue q15 min safety checks. Will encourage the use of environmental modifications and non-pharmacologic approaches for the management of behavioral and psychological symptoms. Medication adjustment made today: Increased seroquel dose. Seroquel 25mg po qd Will continue current psych medications Monitor for medication side effects. The patient will continue on medications for physical illnesses, and Hospitalist will closely monitor these Continue intensive physical and occupational therapies. Monitor patient's mood, sleep, appetite, and behavior closely. Encourage patient to participate in individual and group therapeutic sessions on the wilder. Will provide a safe and therapeutic environment for patient. Estimated length of stay 3 days Medications and Allergies Allergies Allergy/AdvReac Type Severity Reaction Status Date / Time No Known Allergies Allergy Verified 08/26/18 15:57 Home Medications Medication Instructions Recorded Confirmed Last Taken Type Amlodipine Besylate [Norvasc] 10 mg PO QDAY 09/20/19 09/21/19 Unknown History Donepezil [Aricept] 5 mg PO QPM 09/20/19 09/21/19 Unknown History Mirtazapine [Remeron 15mg TAB] 15 mg PO QHS 09/20/19 09/21/19 Unknown History Quetiapine Fumarate [SEROquel] 75 mg PO QHS 09/20/19 09/21/19 Unknown History Nitrofurantoin [place]/M-Cryst 100 mg PO Q12HR #13 capsule 09/21/19 09/21/19 Unknown Rx [Macrobid CAP] Active Meds: Active Medications Amlodipine Besylate (Amlodipine) 10 mg PO QDAY [facility] Last Admin: 09/24/19 09:24 Dose: 10 mg Documented by: Donepezil HCl (Aricept) 5 mg PO QPM [facility] Last Admin: 09/23/19 17:33 Dose: 5 mg Documented by: Mirtazapine (Remeron) 15 mg PO QHS [facility] Last Admin: 09/23/19 22:03 Dose: 15 mg Documented by: Nitrofurantoin Macrocrystals (Macrobid) 100 mg PO Q12HR [facility] Last Admin: 09/24/19 09:24 Dose: 100 mg Documented by: Quetiapine Fumarate (Seroquel) 75 mg PO QHS [facility] Last Admin: 09/23/19 22:03 Dose: 75 mg Documented by: Results - Results Labs/Vitals: Laboratory Last Values WBC 4.3 K/mm3 (4.5-11.0) L 09/21/19 14:16 RBC 4.70 M/mm3 (3.65-5.03) 09/21/19 14:16 Hgb 14.8 gm/dl (10.1-14.3) H 09/21/19 14:16 Hct 43.7 % (30.3-42.9) H 09/21/19 14:16 MCV 93 fl (79-97) 09/21/19 14:16 MCH 32 pg (28-32) 09/21/19 14:16 MCHC 34 % (30-34) 09/21/19 14:16 RDW 14.3 % (13.2-15.2) 09/21/19 14:16 Plt Count 245 K/mm3 (140-440) 09/21/19 14:16 Lymph % (Auto) 38.7 % (13.4-35.0) H 09/21/19 14:16 [place] % (Auto) 9.9 % (0.0-7.3) H 09/21/19 14:16 Eos % (Auto) 0.9 % (0.0-4.3) 09/21/19 14:16 Baso % (Auto) 0.9 % (0.0-1.8) 09/21/19 14:16 Lymph # 1.7 K/mm3 (1.2-5.4) 09/21/19 14:16 [place] # 0.4 K/mm3 (0.0-0.8) 09/21/19 14:16 Eos # 0.0 K/mm3 (0.0-0.4) 09/21/19 14:16 Baso # 0.0 K/mm3 (0.0-0.1) 09/21/19 14:16 Seg Neutrophils % 49.6 % (40.0-70.0) 09/21/19 14:16 Seg Neutrophils # 2.1 K/mm3 (1.8-7.7) 09/21/19 14:16 Sodium 141 mmol/L (137-145) 09/21/19 14:16 Potassium 4.1 mmol/L (3.6-5.0) 09/21/19 14:16 Chloride 100.6 mmol/L (98-107) 09/21/19 14:16 Carbon Dioxide 26 mmol/L (22-30) 09/21/19 14:16 Anion Gap 19 mmol/L 09/21/19 14:16 BUN 17 mg/dL (7-17) 09/21/19 14:16 Creatinine 0.7 mg/dL (0.7-1.2) 09/21/19 14:16 Estimated GFR > 60 ml/min 09/21/19 14:16 BUN/Creatinine Ratio 24 % 09/21/19 14:16 Glucose 121 mg/dL (65-100) H 09/21/19 14:16 POC Glucose 116 (70-105) H 09/22/19 07:44 Hemoglobin A1c 5.7 % (4-6) 09/21/19 14:16 Calcium 9.6 mg/dL (8.4-10.2) 09/21/19 14:16 Total Bilirubin 0.40 mg/dL (0.1-1.2) 09/21/19 14:16 AST 18 units/L (5-40) 09/21/19 14:16 ALT 11 units/L (7-56) 09/21/19 14:16 Alkaline Phosphatase 80 units/L (35-129) 09/21/19 14:16 Total Protein 7.9 g/dL (6.3-8.2) 09/21/19 14:16 Albumin 4.4 g/dL (3.9-5) 09/21/19 14:16 Albumin/Globulin Ratio 1.3 % 09/21/19 14:16 Triglycerides 103 mg/dL (2-149) 09/21/19 14:16 Cholesterol 245 mg/dL (50-199) H 09/21/19 14:16 LDL Cholesterol Direct 183 mg/dL (50-130) H 09/21/19 14:16 HDL Cholesterol 59 mg/dL (40-59) 09/21/19 14:16 Cholesterol/HDL Ratio 4.15 % 09/21/19 14:16 Last Vital Signs Temp 98.1 F 09/23/19 22:00 Pulse 74 09/24/19 09:24 Resp 18 09/23/19 22:00 BP 128/63 09/24/19 09:24 Pulse Ox 98 09/24/19 09:04
[2019-09-24] MEDS: DONEPEZIL 5 MG TAB PO SCH (18:10)
[2019-09-24] MEDS: QUEtiapine 25 MG TAB PO SCH (21:12)
[2019-09-24] MEDS: MIRTAZAPINE 15 MG TAB PO SCH (21:12)
--- NOTE | 2019-09-25 08:37 | Progress Note ---
Subjective Date of service: 09/25/19 Principal diagnosis: Paranoid Schizophrenia Subjective Comment: Medical records reviewed and patient's progress was discussed with unit staff. Nursing note states the patient Patient was medication compliant during this shift. She is calm and she looks and behaves with less paranoia than yesterday. The patient denies si/hi/ah/vh at present. In my interview with the patient this morning, the patient is lying in bed with eyes closed. She is pleasant, calm, and cooperative. She says her mood is good. She is A/O x 3. Mrs. Ortega is still having some delusions. She says "Mayra is a friend of mine. I was in his ceremony and he introduced me to the senate." She denies SI/HI or hallucinations of any kind. She is still talking about she thought she heard her brother's voice the other night and felt like the nurse was harsh in her approach with her. She says her night went well but she was "dreaming a lot." She then proceeded to tell me "this building is upscale and modern." Review of Symptoms: Constitutional: Negative for weight loss ENT: Negative for stridor Respiratory: Negative for cough or hemoptysis All other systems reviewed and are negative MSE Appearance: Well groomed. Lying in bed Behavior: Pleasant, calm, cooperative Mood: "good" Affect: Congruent with stated mood Thought Process: Circumstantial, Flight of ideas Speech: Normal rate. Thought Content Harmfulness Denies SI/HI Hallucinations: Auditory Delusions: Yes Consciousness: alert Cognition/Memory: Inability to focus on one thought at a time Insight/Judgment: Limited. Treatment Plan Due to the psychiatric conditions and treatment listed in the Assessment and Plan - the patient requires continued hospitalization. Will continue inpatient treatment to allow for medication adjustment and monitoring. Will continue q15 min safety checks. Will encourage the use of environmental modifications and non-pharmacologic approaches for the management of behavioral and psychological symptoms. Medication adjustment made today: See orders Will continue current psych medications Monitor for medication side effects. The patient will continue on medications for physical illnesses, and Hospitalist will closely monitor these Continue intensive physical and occupational therapies. Monitor patient's mood, sleep, appetite, and behavior closely. Encourage patient to participate in individual and group therapeutic sessions on the wilder. Will provide a safe and therapeutic environment for patient. Estimated length of stay 3 days Medications and Allergies Allergies Allergy/AdvReac Type Severity Reaction Status Date / Time No Known Allergies Allergy Verified 08/26/18 15:57 Home Medications Medication Instructions Recorded Confirmed Last Taken Type Amlodipine Besylate [Norvasc] 10 mg PO QDAY 09/20/19 09/21/19 Unknown History Donepezil [Aricept] 5 mg PO QPM 09/20/19 09/21/19 Unknown History Mirtazapine [Remeron 15mg TAB] 15 mg PO QHS 09/20/19 09/21/19 Unknown History Quetiapine Fumarate [SEROquel] 75 mg PO QHS 09/20/19 09/21/19 Unknown History Nitrofurantoin [place]/M-Cryst 100 mg PO Q12HR #13 capsule 09/21/19 09/21/19 Unknown Rx [Macrobid CAP] Active Meds: Active Medications Amlodipine Besylate (Amlodipine) 10 mg PO QDAY [facility] Last Admin: 09/24/19 09:24 Dose: 10 mg Documented by: Donepezil HCl (Aricept) 5 mg PO QPM [facility] Last Admin: 09/24/19 18:10 Dose: 5 mg Documented by: Mirtazapine (Remeron) 15 mg PO QHS [facility] Last Admin: 09/24/19 21:12 Dose: 15 mg Documented by: Nitrofurantoin Macrocrystals (Macrobid) 100 mg PO Q12HR [facility] Last Admin: 09/24/19 21:12 Dose: 100 mg Documented by: Quetiapine Fumarate (Seroquel) 75 mg PO QHS [facility] Last Admin: 09/24/19 21:12 Dose: 75 mg Documented by: Quetiapine Fumarate (Seroquel) 25 mg PO QDAY [facility] Results - Results Labs/Vitals: Laboratory Last Values WBC 4.3 K/mm3 (4.5-11.0) L 09/21/19 14:16 RBC 4.70 M/mm3 (3.65-5.03) 09/21/19 14:16 Hgb 14.8 gm/dl (10.1-14.3) H 09/21/19 14:16 Hct 43.7 % (30.3-42.9) H 09/21/19 14:16 MCV 93 fl (79-97) 09/21/19 14:16 MCH 32 pg (28-32) 09/21/19 14:16 MCHC 34 % (30-34) 09/21/19 14:16 RDW 14.3 % (13.2-15.2) 09/21/19 14:16 Plt Count 245 K/mm3 (140-440) 09/21/19 14:16 Lymph % (Auto) 38.7 % (13.4-35.0) H 09/21/19 14:16 [place] % (Auto) 9.9 % (0.0-7.3) H 09/21/19 14:16 Eos % (Auto) 0.9 % (0.0-4.3) 09/21/19 14:16 Baso % (Auto) 0.9 % (0.0-1.8) 09/21/19 14:16 Lymph # 1.7 K/mm3 (1.2-5.4) 09/21/19 14:16 [place] # 0.4 K/mm3 (0.0-0.8) 09/21/19 14:16 Eos # 0.0 K/mm3 (0.0-0.4) 09/21/19 14:16 Baso # 0.0 K/mm3 (0.0-0.1) 09/21/19 14:16 Seg Neutrophils % 49.6 % (40.0-70.0) 09/21/19 14:16 Seg Neutrophils # 2.1 K/mm3 (1.8-7.7) 09/21/19 14:16 Sodium 141 mmol/L (137-145) 09/21/19 14:16 Potassium 4.1 mmol/L (3.6-5.0) 09/21/19 14:16 Chloride 100.6 mmol/L (98-107) 09/21/19 14:16 Carbon Dioxide 26 mmol/L (22-30) 09/21/19 14:16 Anion Gap 19 mmol/L 09/21/19 14:16 BUN 17 mg/dL (7-17) 09/21/19 14:16 Creatinine 0.7 mg/dL (0.7-1.2) 09/21/19 14:16 Estimated GFR > 60 ml/min 09/21/19 14:16 BUN/Creatinine Ratio 24 % 09/21/19 14:16 Glucose 121 mg/dL (65-100) H 09/21/19 14:16 POC Glucose 116 (70-105) H 09/22/19 07:44 Hemoglobin A1c 5.7 % (4-6) 09/21/19 14:16 Calcium 9.6 mg/dL (8.4-10.2) 09/21/19 14:16 Total Bilirubin 0.40 mg/dL (0.1-1.2) 09/21/19 14:16 AST 18 units/L (5-40) 09/21/19 14:16 ALT 11 units/L (7-56) 09/21/19 14:16 Alkaline Phosphatase 80 units/L (35-129) 09/21/19 14:16 Total Protein 7.9 g/dL (6.3-8.2) 09/21/19 14:16 Albumin 4.4 g/dL (3.9-5) 09/21/19 14:16 Albumin/Globulin Ratio 1.3 % 09/21/19 14:16 Triglycerides 103 mg/dL (2-149) 09/21/19 14:16 Cholesterol 245 mg/dL (50-199) H 09/21/19 14:16 LDL Cholesterol Direct 183 mg/dL (50-130) H 09/21/19 14:16 HDL Cholesterol 59 mg/dL (40-59) 09/21/19 14:16 Cholesterol/HDL Ratio 4.15 % 09/21/19 14:16 Last Vital Signs Temp 98.2 F 09/24/19 22:00 Pulse 71 09/24/19 22:00 Resp 18 09/24/19 22:00 BP 131/56 09/24/19 22:00 Pulse Ox 99 09/24/19 22:00
[2019-09-25] MEDS: NITROFURANTOIN MONOHYD/M-CRYST 100 MG CAP PO SCH ×2 (09:47→22:10)
[2019-09-25] MEDS: QUEtiapine 25 MG TAB PO SCH ×2 (09:47→22:10)
[2019-09-25] MEDS: amLODIPine 5 MG TAB PO SCH (16:27)
[2019-09-25] MEDS: DONEPEZIL 5 MG TAB PO SCH (17:35)
[2019-09-25] MEDS: MIRTAZAPINE 15 MG TAB PO SCH (22:10)
--- NOTE | 2019-09-26 08:38 | Discharge Summary ---
Providers - Providers Date of Admission: 09/21/19 11:00 Date of discharge: 09/26/19 Attending physician: KELLEE PEREZ MD 09/21/19 08:48 Consult to Physician [CONS] Routine Comment: Consulting Provider: COLLIN BANUELOS Physician Instructions: Reason For Exam: Medical management of geripsych patient Primary care physician: GARDE MANGER Hospitalization Reason for admission: Hallucinations, delusions Admitting Diagnosis: F02.81 - DEMENTIA IN OTH DISEASES CLASSD ELSWHR W BEHAVIORAL DISTURB Condition: Stable Hospital course: The patient was provided inpatient psychiatric treatment with safe and supportive environment, group/individual therapy, psychiatric medication, medication adjustment, adverse effect monitor, medical evaluation, medical treatment, social service assessment, social support meeting, placement assessment and psycho-education. The patients mood, cognition, behavior, motivation, compliance to treatment and appreciation on family/social support are improved and stabilized. At the time of discharge, the patient had no suicidal ideas, no homicidal ideas, no aggressive thoughts, no endangering behavior and no debilitating adverse effects. The patient agreed on the treatment plan, understood the risk, benefit, alternative treatment, potential consequence of no treatment, and gave informed consent. Disposition: DC/[place]-03 SNF [facility] Time spent for discharge: 35 Allergies/Adverse Reactions: Allergies No Known Allergies Allergy (Verified 08/26/18 15:57) Vital Signs: Last Vital Signs Temp 98.0 F 09/25/19 19:55 Pulse 76 09/25/19 19:55 Resp 18 09/25/19 19:55 BP 112/51 09/25/19 19:55 Pulse Ox 100 09/25/19 19:55 Last Lab: Laboratory Last Values WBC 4.3 K/mm3 (4.5-11.0) L 09/21/19 14:16 RBC 4.70 M/mm3 (3.65-5.03) 09/21/19 14:16 Hgb 14.8 gm/dl (10.1-14.3) H 09/21/19 14:16 Hct 43.7 % (30.3-42.9) H 09/21/19 14:16 MCV 93 fl (79-97) 09/21/19 14:16 MCH 32 pg (28-32) 09/21/19 14:16 MCHC 34 % (30-34) 09/21/19 14:16 RDW 14.3 % (13.2-15.2) 09/21/19 14:16 Plt Count 245 K/mm3 (140-440) 09/21/19 14:16 Lymph % (Auto) 38.7 % (13.4-35.0) H 09/21/19 14:16 [place] % (Auto) 9.9 % (0.0-7.3) H 09/21/19 14:16 Eos % (Auto) 0.9 % (0.0-4.3) 09/21/19 14:16 Baso % (Auto) 0.9 % (0.0-1.8) 09/21/19 14:16 Lymph # 1.7 K/mm3 (1.2-5.4) 09/21/19 14:16 [place] # 0.4 K/mm3 (0.0-0.8) 09/21/19 14:16 Eos # 0.0 K/mm3 (0.0-0.4) 09/21/19 14:16 Baso # 0.0 K/mm3 (0.0-0.1) 09/21/19 14:16 Seg Neutrophils % 49.6 % (40.0-70.0) 09/21/19 14:16 Seg Neutrophils # 2.1 K/mm3 (1.8-7.7) 09/21/19 14:16 Sodium 141 mmol/L (137-145) 09/21/19 14:16 Potassium 4.1 mmol/L (3.6-5.0) 09/21/19 14:16 Chloride 100.6 mmol/L (98-107) 09/21/19 14:16 Carbon Dioxide 26 mmol/L (22-30) 09/21/19 14:16 Anion Gap 19 mmol/L 09/21/19 14:16 BUN 17 mg/dL (7-17) 09/21/19 14:16 Creatinine 0.7 mg/dL (0.7-1.2) 09/21/19 14:16 Estimated GFR > 60 ml/min 09/21/19 14:16 BUN/Creatinine Ratio 24 % 09/21/19 14:16 Glucose 121 mg/dL (65-100) H 09/21/19 14:16 POC Glucose 116 (70-105) H 09/22/19 07:44 Hemoglobin A1c 5.7 % (4-6) 09/21/19 14:16 Calcium 9.6 mg/dL (8.4-10.2) 09/21/19 14:16 Total Bilirubin 0.40 mg/dL (0.1-1.2) 09/21/19 14:16 AST 18 units/L (5-40) 09/21/19 14:16 ALT 11 units/L (7-56) 09/21/19 14:16 Alkaline Phosphatase 80 units/L (35-129) 09/21/19 14:16 Total Protein 7.9 g/dL (6.3-8.2) 09/21/19 14:16 Albumin 4.4 g/dL (3.9-5) 09/21/19 14:16 Albumin/Globulin Ratio 1.3 % 09/21/19 14:16 Triglycerides 103 mg/dL (2-149) 09/21/19 14:16 Cholesterol 245 mg/dL (50-199) H 09/21/19 14:16 LDL Cholesterol Direct 183 mg/dL (50-130) H 09/21/19 14:16 HDL Cholesterol 59 mg/dL (40-59) 09/21/19 14:16 Cholesterol/HDL Ratio 4.15 % 09/21/19 14:16 Core Measure Documentation - Palliative Care Palliative Care/ Comfort Measures: Not Applicable - Core Measures Any of the following diagnoses?: none Exam - Constitutional Vitals: Temp Pulse Resp BP Pulse Ox 98.0 F 76 18 112/51 100 09/25/19 19:55 09/25/19 19:55 09/25/19 19:55 09/25/19 19:55 09/25/19 19:55 General appearance: Present: no acute distress, well-nourished - EENT Eyes: Present: PERRL, EOM intact ENT: hearing intact, clear oral mucosa - Neck Neck: Present: supple, normal ROM - Respiratory Respiratory effort: normal - Integumentary Integumentary: Present: clear, warm, dry Plan Activity: advance as tolerated Weight Bearing Status: Weight Bear as Tolerated Care Plan Goals: Maintain good and stable mental health Plan of Treatment: The patient should be compliant with medications, not to use drugs and not to drink alcohol. The SNF understands that if suicidal ideas, homicidal ideas, or any endangering thoughts/behavior arise, they should immediately seek for emergent assistance including but not limited to crisis hot line and emergency room. Follow up with outpatient Psychiatrist and PCP within 7 - 14 days of discharge. Health Concerns: HTN, Dementia, Schizophrenia Assessment: In my interview this morning, the patient is in room. Awake and walking about. She's very talkative and jumping from thought to thought. She's A/O x 3. She is pleasant, calm and cooperative. She says her night went well, and says "I'm just ready to go home." She consistently denies SI/HI. Mrs. Ortega denies hallucinations of any kind. She denies any problems with her appetite. Follow up with: PRIMARY CARE, [Primary Care Provider] - 7 Days Prescriptions: Quetiapine Fumarate [SEROquel] 75 mg PO QHS #60 QUEtiapine [SEROquel] 25 mg PO QDAY #30 tablet
[2019-09-26] MEDS: amLODIPine 5 MG TAB PO SCH (11:53)
[2019-09-26] MEDS: NITROFURANTOIN MONOHYD/M-CRYST 100 MG CAP PO SCH (11:53)
[2019-09-26] MEDS: QUEtiapine 25 MG TAB PO SCH (11:53)
[2019-09-26 11:58] VITALS: BP 125/51
== END 2019-09-26 17:40 | DRG 885 ==
LOC: UNDOADMIN 08:27 → 3A 08:27 → 5A 11:00
PROVIDERS: ADMIT Psychiatry & Neurology Psychiatry; ATTEND Psychiatry & Neurology Psychiatry
DX: F20.0 Paranoid schizophrenia (principal); I10 Essential (primary) hypertension; F03.90 Unspecified dementia, unspecified severity, without behavioral disturbance, psychotic disturbance, mood disturbance, and anxiety
CPT/HCPCS: 36415; 80048; 80053; 80061; 80307; 80320; 81001; 82962; 83036; 85025; 87086; G0378; G0480